=== PATIENT | male | born 1985 | race Two or more races ===

== ENCOUNTER 2022-12-17 02:30 | Emergency (ER) | payer OTHER ==
[2022-12-17] MEDS: Ondansetron 4 MG/2 ML SDV IVPUSH PRN (02:53)
[2022-12-17] MEDS: HYDROmorphone 1 MG/ML Syringe IVPUSH ONE (02:55)
[2022-12-17] MEDS: Diphtheria,Pertussis(Acell),Tetanus Vaccine 0.5 ML Syringe IM ONE (02:55)
[2022-12-17] MEDS: Iopamidol 755 Mg/ML 100 ML Bottle IVPUSH ONE (03:24)
[2022-12-17] MEDS: Take Home: Acetaminophen/HYDROcodone 325-5 MG, 2 Tab Pack PO ONE (04:15)
== END 2022-12-17 04:20 | disposition home or self-care (01) ==
LOC: CC.ED 02:30
DX: S42.022A Displaced fracture of shaft of left clavicle, initial encounter for closed fracture (principal); Z23 Encounter for immunization; W55.22XA Struck by cow, initial encounter
CPT/HCPCS: 36415; 71260; 74177; 80053; 85025; 90471; 90715; 96374; 96375; 99283; 99284-25; A9270-GY; J1170; J2405; Q9967